=== PATIENT | male | born 1995 | race Caucasian/White ===

== ENCOUNTER 2017-02-15 15:35 | Emergency (ER) | payer OTHER ==
[~2017-02-15] VITALS: Ht 188 cm; Wt 100.0 kg
[2017-02-15 15:37] VITALS: BP 130/72; PULSE 82; RESP 20; TEMP 97.9; O2SAT 96
--- NOTE | 2017-02-15 15:54 | PD ---
Physical Exam Date Seen by Provider: Feb 15, 2017 Time Seen by Provider: 15:51 Narrative Patient seen in triage with reports of sudden onset sharp Right Inguinal abdominal pain that started while talking on the phone while driving last night. Patient has Hx Inguinal Hernia repair about 2 years ago. patient states pain subsided, but not completely gone now. Patient denies urinary symptoms, Fever, Nausea, or vomiting. Vital Signs Stable. Patient awaiting room placement. Data Data Last Documented VS Vital Signs Date Time Temp Pulse Resp B/P Pulse Ox O2 Delivery O2 Flow Rate FiO2 02/15/17 15:37 97.9 82 20 130/72 96 Room Air [facility] Medical Record Reviewed: Yes Supervised Visit with ZAK: Yes Scripts No Active Prescriptions or Reported Meds Condition: Stable Justin Aburto Feb 15, 2017 15:54
--- NOTE | 2017-02-15 18:25 | PD ---
HPI Chief Complaint: Abdominal Pain Time Seen by Provider: 18:25 Travel History International Travel<30 days: No Contact w/Intl Traveler<30days: No Traveled to known affect area: No History of Present Illness HPI Patient is a 21-year-old male presents emergency department for evaluation of right lower quadrant white groin pain. Patient states that he was told that he had bilateral inguinal hernias in the past and did have surgery to repair them. Patient states that his pain actually gets better when he stands up and it was quite severe last night but he decided to fit out. He states he decided to come into the department to be seen tonight but on arrival his pain is actually gotten much better still there but much less severe. It is to the point in the emergency department where he was offered pain medicine and declined. He denies any vomiting but does does endorse some mild nausea. Denies any change in stool denies any blood in the stool constipation or diarrhea. Patient states she's never had this type of pain in the past. He does state that he still has his appendix and was wondering if he had an appendicitis. [facility] Past Medical History Medical History: Denies Significant Hx Past Surgical History Narrative Surgical Previous bilateral inguinal hernia repairs. Family History Family History: Negative Social History Tobacco Use: No Substance Use: No Allergies-Medications (Allergen,Severity, Reaction): Coded Allergies: No Known Allergies (Unverified , 07/24/14) Reported Meds & Prescriptions Reported Meds & Active Scripts Active No Active Prescriptions or Reported Medications Review of Systems Except as stated in HPI: all other systems reviewed are Neg Physical Exam Narrative GENERAL: Well-developed well-nourished, appears in no apparent distress. SKIN: Focused skin assessment warm/dry. HEAD: Atraumatic. Normocephalic. EYES: Pupils equal and round. No scleral icterus. No injection or drainage. ENT: No nasal bleeding or discharge. Mucous membranes pink and moist. NECK: Trachea midline. No JVD. CARDIOVASCULAR: Regular rate and rhythm. No murmur appreciated. RESPIRATORY: No accessory muscle use. Clear to auscultation. Breath sounds equal bilaterally. GASTROINTESTINAL: Abdomen soft, no true tenderness of the right lower quadrant. Patient actually identifies the painful spot more in his groin, nondistended abdomen. Hepatic and splenic margins not palpable. Genitourinary: Testes are descended and nontender bilaterally. Cremasteric reflexes intact. MUSCULOSKELETAL: No obvious deformities. No clubbing. No cyanosis. No edema. NEUROLOGICAL: Awake and alert. No obvious cranial nerve deficits. Motor grossly within normal limits. Normal speech. PSYCHIATRIC: Appropriate mood and affect; insight and judgment normal. Data Data Last Documented VS Orders Complete Blood Count With Diff (02/15/17 18:32) Comprehensive Metabolic Panel (02/15/17 18:32) Lipase (02/15/17 18:32) Prothrombin Time / Inr (Pt) (02/15/17 18:32) Act Partial Throm Time (Ptt) (02/15/17 18:32) Urinalysis - C+S If Indicated (02/15/17 18:32) Ct Abd/Pel W Iv Contrast(Rout) (02/15/17 18:32) Iv Access Insert/Monitor (02/15/17 18:32) Ecg Monitoring (02/15/17 18:32) Oximetry (02/15/17 18:32) Sodium Chloride 0.9% Flush (Ns Flush) (02/15/17 18:45) Iohexol 350 Inj (Omnipaque 350 Inj) (02/15/17 19:35) Labs MDM Medical Decision Making Medical Screen Exam Complete: Yes Emergency Medical Condition: Yes Differential Diagnosis Appendicitis unlikely, groin pain, UTI, kidney stone, STD unlikely. Narrative Course Patient was roomed in the emergency department, he was offered pain medicine and declined. His labs are reassuring and discussed with him could consider doing a CAT scan however I think the yield is fairly low with this. He would like to make sure he is not having appendicitis and after discussing the risks of radiation exposure he continues to agree for CAT scan: Last 24 hours Impressions Abdomen/Pelvis CT 02/15/17 1832 Signed Impressions: Service Date/Time: January 19:12 - CONCLUSION: Unremarkable CT of the abdomen and pelvis with contrast. Ector Hart MD Patient's pain is under control and he requests discharge. Discussed with her need follow-up the primary care physician and discussed return to ED criteria. Diagnosis Primary Impression: Right groin pain Scripts No Active Prescriptions or Reported Meds Disposition: DISCHARGE HOME Condition: Stable Ector Salgado MD Feb 15, 2017 18:25 MG/DL Urine Leukocyte Esterase NEG Urine RBC LESS THAN 1 /hpf Urine WBC 1 /hpf Urine Mucus FEW /lpf Microscopic Urinalysis Comment CULT NOT INDICATED Sodium Level 140 MEQ/L Potassium Level 3.8 MEQ/L Chloride Level 107 MEQ/L Carbon Dioxide Level 25.9 MEQ/L Anion Gap 7 MEQ/L Blood Urea Nitrogen 13 MG/DL Creatinine 1.03 MG/DL Estimat Glomerular Filtration 89 ML/MIN Rate Random Glucose 93 MG/DL Calcium Level 8.9 MG/DL Total Bilirubin 0.3 MG/DL Aspartate Amino Transf 21 U/L (AST/SGOT) Alanine Aminotransferase 30 U/L (ALT/SGPT) Alkaline Phosphatase 54 U/L Total Protein 7.8 GM/DL Albumin 4.1 GM/DL Lipase 140 U/L MDM Medical Decision Making Medical Screen Exam Complete: Yes Emergency Medical Condition: Yes Diagnosis Primary Impression: Right groin pain Scripts No Active Prescriptions or Reported Meds Disposition: 01 DISCHARGE HOME Condition: Stable Ector Salgado MD Feb 15, 2017 18:25
[2017-02-15] MEDS ORDERED: SODIUM CHLORIDE 0.9% FLUSH 10 ML FLUSH IV FLUSH PRN (18:45)
[2017-02-15 19:11] LABS: AUTOMATED NEUTROPHIL # 3.2 TH/MM3 (1.8-7.7); BASOPHIL # 0.1 TH/MM3 (0-0.2); BASOPHIL % 0.8 % (0.0-2.0); EOSINOPHIL # 0.2 TH/MM3 (0-0.4); HEMATOCRIT 45.7 % (39.0-51.0); HEMO FLAGS DIFF FINAL; LYMPH % 37.4 % (9.0-44.0); LYMPHOCYTE # 2.6 TH/MM3 (1.0-4.8); MEAN CELL VOLUME 92.6 FL (80.0-100.0); MEAN CORPUSCULAR HGB CONC 33.5 % (32.0-36.0); MONO % 12.5 % (0.0-8.0); NEUT % 46.3 % (16.0-70.0); PLATELET COUNT 258 TH/MM3 (150-450); RED BLOOD COUNT 4.93 MIL/MM3 (4.50-5.90); RED CELL DISTRIBUTION WIDTH 13.2 % (11.6-17.2)
[2017-02-15 19:18] LABS: ANION GAP 7 MEQ/L (5-15); AST (GOT) 21 U/L (15-37); BICARBONATE 25.9 MEQ/L (21.0-32.0); BLOOD UREA NITROGEN 13 MG/DL (7-18); CHLORIDE 107 MEQ/L (98-107); GLOMERULAR FILTRATION RATE 89 ML/MIN (>89); POTASSIUM 3.8 MEQ/L (3.5-5.1); SODIUM (NA) 140 MEQ/L (136-145)
[2017-02-15 19:21] LABS: ALKALINE PHOSPHATASE 54 U/L (45-117); ALT (GPT) 30 U/L (12-78); TOTAL BILIRUBIN ADULT 0.3 MG/DL (0.2-1.0)
[2017-02-15 19:25] LABS: APTT (PATIENT) 25.7 SEC (24.3-30.1); PROTHROMBIN TIME - PATIENT 11.2 SEC (9.8-11.6)
[2017-02-15 19:34] LABS: BLOOD, URINE NEG (NEG); COMMENT (UR) CULT NOT INDICATED; CULTURE IF INDICATED CULT NOT INDICATED; GLUCOSE,URINE NEG (NEG); KETONE, URINE NEG (NEG); MUCUS URINE FEW /lpf (OCC); NITRITE,URINE NEG (NEG); PH, URINE 5.5 (5.0-8.5); URINE COLOR YELLOW (YELLW/STRAW)
[2017-02-15] MEDS ORDERED: IOHEXOL 350 MG/ML 10 ML VIAL (for RAD DIAG) IV ONE (19:35)
--- NOTE | 2017-02-15 19:42 | RADRPT ---
EXAM DATE/TIME: 02/15/2017 19:12 [facility] COMPARISON: No previous studies available for comparison. INDICATIONS : Right lower quadrant pain for two days. IV CONTRAST: 93 cc Omnipaque 350 (iohexol) IV ORAL CONTRAST: No oral contrast ingested. RADIATION DOSE: 10.90 CTDIvol (mGy) MEDICAL HISTORY : None SURGICAL HISTORY : None. ENCOUNTER: Initial ACUITY: 2 days PAIN SCALE: 3/10 LOCATION: Right Abdomen TECHNIQUE: Volumetric scanning of the abdomen and pelvis was performed. Using automated exposure control and ad justment of the mA and/or kV according to patient size, radiation dose was kept as low as reasonably achievable to obtain optimal diagnostic quality images. FINDINGS: LOWER LUNGS: The visualized lower lungs are clear. LIVER: Homogeneous density without lesion. There is no dilation of the biliary tree. No calcified gallston es. SPLEEN: Normal size without lesion. PANCREAS: Within normal limits. KIDNEYS: Normal in size and shape. There is no mass, stone or hydronephrosis. ADRENAL GLANDS: Within normal limits. VASCULAR: There is no aortic aneurysm. BOWEL/MESENTERY: The stomach, small bowel, and colon demonstrate no acute abnormality. There is no free intraperitone al air or fluid. The appendix is normal. ABDOMINAL WALL: Within normal limits. RETROPERITONEUM: There is no lymphadenopathy. BLADDER: No wall thickening or mass. REPRODUCTIVE: Within normal limits. INGUINAL: There is no lymphadenopathy or hernia. Bilateral inguinal hernia repairs are noted. MUSCULOSKELETAL: Within normal limits for patient age. CONCLUSION: Unremarkable CT of the abdomen and pelvis with contrast. Ector Hart MD on February 15, 2017 at 19:38 Board Certified Radiologist. This report was verified electronically.
[2017-02-15 20:33] VITALS: BP 135/74; PULSE 72; RESP 18; O2SAT 99
== END 2017-02-15 20:54 | disposition home or self-care (01) ==
LOC: NEPA 15:35
DX: R10.31 Right lower quadrant pain (principal)
CPT/HCPCS: 74177; 80053; 81001; 83690; 85025; 85610; 85730; 99284; Q9967